=== PATIENT | female | born 1985 | race African-American/Black ===

== ENCOUNTER → 2021-11-19 12:53 | Outpatient (CLI) | payer BC, SELFPAY ==
--- NOTE | ~2021-11-19 | US_ITS ---
EXAMINATION: US OB <=14 wk fetus w TV DATE: 11/19/2021 13:20 INDICATION: Gestational dating. Evaluate viability. TECHNIQUE: Real-time transabdominal and transvaginal obstetric ultrasound. FINDINGS: No prior studies for comparison. The uterus measures 8.3 x 3.9 x 5.6 cm. There is an intrauterine gestational sac, with pole timmy ntified. There is a small subchorionic hemorrhage measuring 1.1 x 0.2 x 0.2 cm. The crown rump length measures 0.39 cm, which correlates with a estimated gestational age of 6 weeks 1 day. heart tones are identified measuring 112 BPM. There are small follicles in the ovaries bilaterally. IMPRESSION: 1. SL IUP with an EGA of 6 weeks, 1 days (EDC by current ultrasound of 07/14/2022). 2: Small subchorionic hemorrhage. Reviewed, dictated and finalized at location A. IMPRESSION: 1. SL IUP with an EGA of 6 weeks, 1 days (EDC by current ultrasound of 3). 2: Small subchorionic hemorrhage.
== END ==
PROVIDERS: PCP Obstetrics & Gynecology; Visit Provider Obstetrics & Gynecology
DX: O09.299 Supervision of pregnancy with other poor reproductive or obstetric history, unspecified trimester (principal); Z3A.00 Weeks of gestation of pregnancy not specified; Z3A.01 Less than 8 weeks gestation of pregnancy
CPT/HCPCS: 76801; 76817

== ENCOUNTER 2022-04-14 08:50 | Outpatient (RCR) | payer BC, SELFPAY ==
[2022-04-14] MEDS: RHO(D) IMMUNE GLOBULIN 300 MCG/2 ML SYRINGE IM (17:24)
== END 2022-07-13 23:59 | disposition home or self-care (01) ==
LOC: ANHLAB 08:50
PROVIDERS: Visit Provider Obstetrics & Gynecology
DX: Z29.13 Encounter for prophylactic Rho(D) immune globulin (principal); O36.0190 Maternal care for anti-D [Rh] antibodies, unspecified trimester, not applicable or unspecified; Z3A.00 Weeks of gestation of pregnancy not specified
CPT/HCPCS: 36415; 85461; 86850; 86900; 86901; 90384; 96372; J2790

== ENCOUNTER 2022-07-06 10:02 | Outpatient (CLI) | payer BC, SELFPAY ==
--- NOTE | ~2022-07-06 | US_ITS ---
US OB limited 07/06/2022 11:22 Indication: Leaking vaginal fluid Procedure: High-resolution Limited obstetrical ultrasound Comparison: No prior studies for comparison. Findings: There is a single living intrauterine with heart rate of 167 BPM. Fetus is in vertex presentation. Placenta is fundal/posterior. Amniotic fluid index measures 13.7 cm centimete rs (normal range for gestational age is 7.3-23.9 cm). Impression: 1: Normal PEARL measures 13.7 cm. Reviewed, dictated and finalized at location L. Impression: 1: Normal PEARL measures 13.7 cm.
[2022-07-06 11:00] VITALS: BP 131/78; PULSE 70
[2022-07-06 11:09] VITALS: BP 135/77; PULSE 59
--- NOTE | 2022-07-06 11:48 | PC.NURSE ---
Dr Buchanan notified of PEARL and negative ROM plus. OK to dc home. Patient is scheduled for IOL at 1700 on 07/07/22.
== END 2022-07-06 11:55 | disposition home or self-care (01) ==
LOC: ANHOBOP 10:51 → ANHLDR 10:51
PROVIDERS: Visit Provider Obstetrics & Gynecology
DX: O42.90 Premature rupture of membranes, unspecified as to length of time between rupture and onset of labor, unspecified weeks of gestation (principal); Z3A.00 Weeks of gestation of pregnancy not specified
CPT/HCPCS: 59025; 76815; 84112; 99199

== ENCOUNTER 2022-07-07 16:49 | Inpatient (IN) | payer BC, SELFPAY ==
[2022-07-07] VITALS (26 sets, daily range): BP systolic 118–151; BP diastolic 51–98; PULSE 71–90; RESP 16; TEMP 36.1–36.6; BMI 39.9
--- NOTE | 2022-07-07 17:27 | LDADM ---
This patient, Shelia Mendoza, was admitted to Labor/Delivery/Recovery 103 on 07/07/22 at 16:49. Plans for labor, pain management and were discussed with patient. Patient/family oriented to hospital policies and general routines including ID bracelet, bed and alarms, visiting hours, pain management, procedures, bathroom and other care routines, personal items, smoking policy, room service/diet and guest tray routines, infant security routines, and visiting hours. Patient/Family are encouraged to report perceived risks to care and to ask questions if they do not understand what they are told or what they should do. See OBIX for further documentation.
[2022-07-07 17:44] LABS: Basophils Percent Auto 0.3 % (0.2-1.2); Eosinophils Absolute Auto 0.1 K/mm3 (0-0.3); Eosinophils Percent Auto 1.8 % (0-4.4); Hematocrit 36.2 % (37.0-47.0); Hemoglobin 12.1 g/dL (12.0-15.0); Immature Granulocyte Absolute 0.06 K/mm3 (0.00-0.031); Immature Granulocyte Percent A 0.9 % (0-0.5); Lymphocytes Absolute Auto 1.49 K/mm3 (0.9-3.2); Lymphocytes Percent Auto 22.2 % (18.3-44.2); Mean Corpuscular HGB Conc 33.4 g/dl (32-36); Mean Corpuscular Hemoglobin 29.2 pg (26-34); Mean Corpuscular Volume 87.4 fl (80-100); Mean Platelet Volume 10.7 fl (7.4-10.4); Monocytes Absolute Auto 0.7 K/mm3 (0.1-0.6); Neutrophils Absolute Auto 4.4 K/mm3 (1.3-6.7); Neutrophils Percent Auto 64.8 % (45.5-73.1); Platelet Count Result 191 k/mm3 (150-375); Red Blood Count 4.14 M/mm3 (4.2-5.4); Red Cell Distribution Width 14.3 % (11.5-14.5); White Blood Count 6.7 K/mm3 (4.5-10.0)
--- NOTE | 2022-07-07 18:51 | WPDANESEPP ---
Anes - Eval Pre Procedure Procedure: labor epidural Date/Time: 07/07/22 18:51 Surgeon: johnson Preop Diagnosis: pain during labor Pre Op Diagnosis: IOL Patient Data Age: 36 Gender: F Height: 1.65 m Weight: 109 kg Last Vital Signs Pulse 74 07/07/22 18:45 BP 130/74 07/07/22 18:45 O2 Del Method Room Air 07/07/22 18:10 Allergies Allergy/AdvReac Type Severity Reaction Status Date / Time No Known Allergies Allergy Verified 07/07/22 18:21 Home Medications Medication Instructions Recorded Confirmed Type docosahexaenoic acid 200 mg 200 mg PO DAILY 05/19/20 07/07/22 History capsule ( DHA) aspirin 81 mg tablet,delayed 81 mg PO DAILY 02/09/22 07/07/22 History release ferrous sulfate 325 mg (65 mg 325 mg PO DAILY 05/03/22 07/07/22 History iron) tablet (Feosol) docusate sodium 100 mg capsule 100 mg PO DAILY 07/07/22 07/07/22 History (Stool Softener) Laboratory Tests 07/07/22 07/07/22 17:12 17:12 WBC 6.7 K/mm3 K/mm3 (4.5-10.0) RBC 4.14 M/mm3 L M/mm3 (4.2-5.4) Hgb 12.1 g/dL g/dL (12.0-15.0) Hct 36.2 % L % (37.0-47.0) MCV 87.4 fl fl (80-100) MCH 29.2 pg pg (26-34) MCHC 33.4 g/dl g/dl (32-36) RDW 14.3 % % (11.5-14.5) Plt Count 191 k/mm3 k/mm3 (150-375) MPV 10.7 fl H fl (7.4-10.4) Immature Gran % (Auto) 0.9 % H % (0-0.5) Neut % (Auto) 64.8 % % (45.5-73.1) Lymph % (Auto) 22.2 % % (18.3-44.2) [place] % (Auto) 10.0 % H % (2.6-8.5) Eos % (Auto) 1.8 % % (0-4.4) Baso % (Auto) 0.3 % % (0.2-1.2) Lymph # (Auto) 1.49 K/mm3 K/mm3 (0.9-3.2) [place] # (Auto) 0.7 K/mm3 H K/mm3 (0.1-0.6) Eos # (Auto) 0.1 K/mm3 K/mm3 (0-0.3) Baso # (Auto) 0.0 K/mm3 K/mm3 (0.0-0.1) Abs Immat Gran (auto) 0.06 K/mm3 H K/mm3 (0.00-0.031) Absolute Neuts (auto) 4.4 K/mm3 K/mm3 (1.3-6.7) Absolute Nucleated RBC 0.0 K/mm3 K/mm3 (0.0-0.012) Nucleated RBC % 0.0 % % (0.0-0.2) RPR Pending Patient hx anesthesia problems: none Family hx anesthesia problems: none Results Review: All pre-operative results and documents have been reviewed as part of the pre-operative evaluation. [facility] Past Medical History Medical History (Updated 07/07/22 @ 18:52 by Carley Rain CRNA) Diabetes History of miscarriage Intrauterine IUP (intrauterine ), incidental Family History Family History Mother High cholesterol Social History Social History Smoking status: Never smoker Second hand tobacco smoke exposure: No Alcohol intake: never Lack of Transportation: No Lack of Food: Never True Current Housing: I Have Housing Concerned About Future Housing: No Difficulty Paying Gas/Electric Bills: No Difficulty Paying for Meds: No Currently Unemployed: No Education: Bachelor's Degree Difficulty w/ Childcare or Family Care: No Spiritual care concerns: No Exam Day of Procedure 07/07/22 18:51
[2022-07-07] MEDS: LACTATED RINGERS 1,000 ML 125 ML IV CONT (19:07)
[2022-07-07] MEDS: OXYTOCIN 30 UNITS/NS 500 ML 30 UNITS/500 ML BAG IV CONT (19:08)
[2022-07-08] VITALS (315 sets, daily range): BP systolic 65–184; BP diastolic 33–158; PULSE 58–187; RESP 16; TEMP 36.1–37.1; O2SAT 82–100
[2022-07-08] MEDS: PHENYLEPHRINE 1,000 MCG/10 ML SYRINGE 100 MCG IV PUSH (01:17)
[2022-07-08] MEDS: LACTATED RINGERS 1,000 ML 125 ML IV CONT ×3 (03:43→14:21)
--- NOTE | 2022-07-08 08:28 | PM.IMHP ---
H&P: HPI History of Present Illness Date/Time: 07/08/22 08:28 Chief Complaint: Induction of labor Narrative: She is at 39 weeks by an edc of 07/14 established by a first trimester ultrasound which was not consistent with her period. She presented for MIL. Her Dalal score at last visit was 4. When she presented for induction her cervix had dilated to 3cm and Dalal was seven. PNC significant for AMA. She had a history of infertility and PCOS. She was on Metformin prior to . She has had normal glucose testing. Labs reviewed. GBS negative. Review of Systems Review of Systems: All systems reviewed & are unremarkable except as noted in HPI and below Constitutional: Constitutional: Reports no additional constitutional complaints and Denies headache(s) Eyes: Eyes: Denies spots in vision ENT: Reports system reviewed and no additional complaints, except as documented and Denies headache(s) Cardiovascular: Cardiovascular: Denies chest pain and Denies dyspnea Respiratory: Respiratory: Denies dyspnea Gastrointestinal: Gastrointestinal: Reports no additional gastrointestinal complaints Genitourinary: Genitourinary: Reports amenorrhea Musculoskeletal: Musculoskeletal: Reports no additional musculoskeletal complaints Integumentary/Breasts: Skin/Breast: Denies breast mass and Denies rash Neurologic: Denies headache(s) Psychiatric: Psychiatric: Reports no additional psychiatric complaints REPLACED BY [facility] Past Medical History Medical History (Updated 07/08/22 @ 08:30 by Giuseppe Buchanan MD) Diabetes History of miscarriage Intrauterine IUP (intrauterine ), incidental Family History Family History Mother High cholesterol Social History Social History Smoking status: Never smoker Second hand tobacco smoke exposure: No Alcohol intake: never Lack of Transportation: No Lack of Food: Never True Current Housing: I Have Housing Concerned About Future Housing: No Difficulty Paying Gas/Electric Bills: No Difficulty Paying for Meds: No Currently Unemployed: No Education: Bachelor's Degree Difficulty w/ Childcare or Family Care: No Spiritual care concerns: No Meds Home Medications and Allergies Home Medications Medication Instructions Recorded Confirmed Type docosahexaenoic acid 200 mg 200 mg PO DAILY 05/19/20 07/07/22 History capsule ( DHA) aspirin 81 mg tablet,delayed 81 mg PO DAILY 02/09/22 07/07/22 History release ferrous sulfate 325 mg (65 mg 325 mg PO DAILY 05/03/22 07/07/22 History iron) tablet (Feosol) docusate sodium 100 mg capsule 100 mg PO DAILY 07/07/22 07/07/22 History (Stool Softener) Allergies Allergy/AdvReac Type Severity Reaction Status Date / Time No Known Allergies Allergy Verified 07/07/22 18:21 Vital Signs Vital Signs - 24 hr 07/07/22 17:42 07/07/22 17:45 07/07/22 18:00 Temperature Pulse Rate 80 78 78 Respiratory Rate Blood Pressure 119/90 121/77 129/75 Pulse Oximetry Oxygen Delivery 07/07/22 18:15 07/07/22 18:30 07/07/22 18:45 Temperature 97 F L Pulse Rate 78 79 74 Respiratory Rate 16 Blood Pressure 123/66 125/80 130/74 Pulse Oximetry Oxygen Delivery 07/07/22 19:00 07/07/22 19:15 07/07/22 19:30 Temperature Pulse Rate 79 77 79 Respiratory Rate Blood Pressure 149/98 H 130/75 130/72 Pulse Oximetry Oxygen Delivery 07/07/22 19:45 07/07/22 20:00 07/07/22 20:17 Temperature Pulse Rate 76 90 80 Respiratory Rate Blood Pressure 126/80 126/69 124/54 L Pulse Oximetry Oxygen Delivery 07/07/22 20:30 07/07/22 20:45 07/07/22 21:00 Temperature Pulse Rate 86 78 73 Respiratory Rate Blood Pressure 130/78 134/79 151/84 H Pulse Oximetry Oxygen Delivery 07/07/22 21:15 07/07/22 21:30 07/07/22 21:45 Temperature
--- NOTE | 2022-07-08 08:32 | PM.OBPNLAB ---
Pain Control Date/time seen: 07/08/22 08:32 Comments: FHT 130, Cat 1, irreg ctx, IUPC recently placed, cervix /. Continue pitocin.
[2022-07-08] MEDS: SODIUM CHLORIDE 0.9% IV 300 ML 600 ML I-UTERINE (11:51)
[2022-07-08] MEDS: fentaNYL CITRATE INJ (*CRX) 100 MCG/2 ML VIAL (15:30)
--- NOTE | 2022-07-08 16:36 | PM.OBPNLAB ---
Pain Control Date/time seen: 07/08/22 1250 fht 135, cat 2, ant lip/rim, 0
[2022-07-08 16:39] LABS: Rapid Plasma Reagin Non-Reactive (NonReactive)
[2022-07-08] MEDS: AMPICILLIN 2 GM/NS 100 ML 2 GM/100 ML BAG IVPB (17:15)
[2022-07-08] MEDS: OXYTOCIN 30 UNITS/NS 500 ML 30 UNITS/500 ML BAG 125 UNITS IV CONT (18:53)
--- NOTE | 2022-07-08 19:29 | PM.OBDSVD ---
DS: Admitting Diagnosis Discharge Date 07/10/2022 Admitting Diagnosis Medical induction of labor DS: Discharge Diagnosis Discharge Diagnosis (1) Delivery normal: Code(s): O80 - Encounter for full-term uncomplicated delivery Status: Acute OB - DS: Summary Hospital Course Hospital Course: Admitted for MIL. She had pitocin induction. She had SROM. She did get an IUPC. She progressed to complete and had a spontaneous vaginal delivery complicated by mild shoulder dystocia relieved with suprapubic pressure. She had a second degree perineal laceration and a periurethral laceration repaired with 3.0 vicryl. OB Procedures : Ultrasound OB Procedures Intrapartum: Spontaneous Vag Delivery OB Procedures: : None Peripartum Data Infant Delivery Method: Natural Vaginal complications: none Status at Discharge Functional status at discharge: independent ambulation Time Spent with Patient Time attestation: Total time spent providing and/or coordinating discharge services: Exam Const: General: cooperative Orientation/consciousness: oriented to person, oriented to place and oriented to time HENMT: Face/Nose/Sinus: Normal external nose present Eyes: General: appearance normal, both eyes and all related structures Resp: Effort & Inspection: normal respiratory effort GI: Inspection: normal to inspection Skin: General skin exam: normal color Neuro: General: oriented to person, oriented to place and oriented to time Extrem: General: normal to inspection and no calf tenderness Psych: Appearance: grossly normal Mental Status: mental status grossly normal DS: Data Data Completed and Pending Labs on day of discharge: Labs from last 24 hours 07/07/22 17:12 RPR Non-reactive Discharge Plan Discharge Attending physician on discharge: Giuseppe Buchanan Consulting providers: Carley Rain; Madelyn Davis Discharging Clinician: Anusha Toledo Patient Disposition: Home, Self-Care Activity: may shower, may drive after 2 weeks and pelvic rest Diet: regular Discharge Instructions: Education: Mom and Baby Guide Given to: Mother Follow-Up: Call your delivering provider's office for an appointment to be seen in: 6 Weeks Mom [facility]. Appointment Date/Time: July 12, 2022 at 11:00 am What to expect at your follow-up visit: Call [phone] if you are unable to keep your appointment time. BREAST CARE: * Wear a snug supportive bra. * For engorgement discomfort: Breast Feeding: * Apply warm moist washcloths * Express milk as needed to relieve engorgement * Wear loose clothing Bottle Feeding: * May apply ice packs * For sore nipples: * Identify correct latch-on * Apply warm moist washcloths before and after nursing * Air dry nipples after nursing * May apply Lansinoh cream to nipples PERINEAL CARE: * Until bleeding stops, use your mandie bottle after urinating * Change your pad frequently throughout the day * You may take sitz baths several times a day (fill your bathtub with warm water and soak for 20 minutes.) Do NOT bathe in the water * No tub baths until seen by your physician - You may shower ACTIVITY: * Rest as much as possible. * Do not exercise or lift anything heavier than your baby (such as laundry or other children.) * Avoid stairs or driving as much as possible. * Do not put anything into the vagina. No douching, tampons, or sexual activity until seen by physician. NOTIFY PHYSICIAN IF YOU HAVE ANY QUESTIONS OR IF ANY OF THE FOLLOWING SYMPTOMS OCCUR: * If your perineum becomes red, swollen, or more painful than what you have experienced in the hospital. * If your vaginal bleeding becomes foul smelling. * If your vaginal bleeding becomes more heavy than a period or if your bleeding changes fro
--- NOTE | 2022-07-08 19:36 | PM.OBPRVD ---
OB - Delivery Note Procedure Delivery date: 07/08/22 Procedure: spontaneous vaginal delivery Induction method: Per Misoprostol Protocol Delivery monitor: External FHT and Internal Uterine Route of delivery: Laceration Description: Perineal - 2nd Degree Delivery repair: vicryl (3.0 vicryl) Specimen: No Quantitative Blood Loss (ml): 450 Anesthesia type: Epidural Disposition: Floor Narrative: She was admitted for [facility]. She had Pitocin induction. She had SROM. She had isolated episodes of bradycardia and pitocin was stopped and subsequently restarted. She had an IUPC placed and amnioinfusion for variable decelerations. She dilated to complete. She had a vaginal delivery. Complicated by mild shoulder dystocia which was not reduced with modified Segun, she then had suprapubic pressure which relieved the dystocia. Total time was 25sec. Infant was placed on abdomen, terminal meconium noted, cord doubly clamped and cut. sent to warmer with nursery staff. Placenta delivered spontaneously and intact. She sustained a second degree perineal laceration repaired with 3.0 vicryl. She also had a periurethral laceration requiring a figure of eight 3.0 vicryl for hemostasis. Hemostasis noted. Multiple figure of eight sutures were used for the vaginal laceration. Hemostasis noted. Vag packing inserted. Baby Date of : 07/08/22 Time of : 18:27 Weeks of gestation at delivery: 39 gender: Male Weight (pounds): 7 Weight (ounces): 11 presentation: vertex position: Left Occiput Anterior Placenta delivery description: Spontaneous Cord Vessel Description: Clamped/Cut score one minute: 5 score five minutes: 8 AMG Delivery Billing Delivery Delivery: Delivery Charge
[2022-07-08] MEDS: BENZOCAINE 20% AER SPR (*SP) 56 GM CAN 1 SPRAY TOPICAL (20:42)
[2022-07-08] MEDS: WITCH HAZEL 40 PADS 1 PAD TOPICAL (20:42)
[2022-07-08] MEDS: IBUPROFEN 600 MG TABLET PO (20:42)
--- NOTE | 2022-07-08 21:40 | PC.NURSE ---
Patient transferred to post room #286 via (W/C). Support person present. Oriented to unit, room, information board, rooming in, admission packet and security measures. Patient verbalizes understanding.
[2022-07-09 04:31] VITALS: BP 125/72; PULSE 99; RESP 16; TEMP 36.8; O2SAT 96
[2022-07-09 06:06] LABS: Hemoglobin 9.4 g/dL (12.0-15.0)
[2022-07-09 07:45] VITALS: BP 145/75; PULSE 108; RESP 15; TEMP 36.5; O2SAT 100
--- NOTE | 2022-07-09 08:00 | PC.NURSE ---
PT introductions made and plan of care discussed per post , pain management, breast feeding, daily care activities. PT and fob both recipients of such instructions and no barriers to learning identified at this time. PT received such instructions this shift via one to one discussion, mom baby care guide and demonstrations. PT verbalized understanding of such care.
--- NOTE | 2022-07-09 08:59 | WPDANLDPN2 ---
Anes-Prog Note L&D Date/Time: 07/09/22 08:59 Comfortable throughout: labor and delivery Neuraxial method: epidural Epidural/Spinal procedure site: clean & non-tender Neuro status: Neuro function grossly intact. Cardiovascular status: normal Respiratory status: normal Airway patency: baseline Mental status: baseline Post-Op hydration status: normal Vital Signs: Last Vital Signs Temp 97.7 F 07/09/22 07:45 Pulse 108 H 07/09/22 07:45 Resp 15 07/09/22 07:45 BP 145/75 H 07/09/22 07:45 Pulse Ox 100 07/09/22 07:45 O2 Del Method Room Air 07/08/22 23:02 Pain score (VAS): 0 I/O: Intake & Output 07/08/22 07/09/22 07/09/22 23:59 07:59 15:59 Intake Total 100 Output Total 75 Balance 25 Post-procedural complaints: none Patient feedback: Patient satisfied with anesthetic care. Other findings: pt verbalizes residual tingling sensation to left foot.denies motor deficit
[2022-07-09 09:50] VITALS: BP 123/64; PULSE 87; O2SAT 100
[2022-07-09 09:57] VITALS: PULSE 87; RESP 15; O2SAT 100
[2022-07-09] MEDS: ACETAMINOPHEN 325 MG TABLET 650 MG PO ×2 (09:57→19:13)
[2022-07-09] MEDS: DOCUSATE SODIUM 100 MG CAPSULE PO ×2 (09:58→19:14)
[2022-07-09] MEDS: IBUPROFEN 600 MG TABLET PO ×2 (09:59→19:14)
[2022-07-09] MEDS: POLYSACCHARIDE IRON COMPLEX 150 MG CAPSULE PO ×2 (09:59→19:14)
[2022-07-09] MEDS: MULTIVIT/MIN/PREN/FOL AC/IRON TABLET 1 TAB PO (09:59)
[2022-07-09] MEDS: LANOLIN (LANSINOH) 7.5 GM CREAM 1 APPLIC TOPICAL (10:02)
--- NOTE | 2022-07-09 10:28 | P.PNOB_ITS ---
OB - PN: Subj Subjective Date/time seen: 07/09/22 10:28 Interval history: She complains of left foot numbness. Says it affects walking some but she is able to walk. Patient comments: pain well controlled, tolerating diet and other (Decreasing lochia.) [place] baby status: doing well feeding status: exclusively bottle feeding OB - PN: Obj Data Labs 07/09/22 05:53 Labs: Laboratory Results - last 24 hr 07/07/22 07/09/22 07/09/22 17:12 04:38 05:53 Hgb 9.4 L Hct 29.0 L RPR Non-reactive Blood Type O Negative Antibody Screen Negative Screen Negative Baby's Blood Type O pos Baby's АННА Negative Doses of RhIg Required 1 OB - PN A/P Assessment and Plan (1) Delivery normal: Code(s): O80 - Encounter for full-term uncomplicated delivery Status: Acute Assessment and Plan: Doing well. Continue routine care. Mild decrease sensory in left but may be do to the tight compression she had on. Socks removed. Continue to observe. (2) Anemia: Code(s): D64.9 - Anemia, unspecified Status: Acute Assessment and Plan: Asymptomatic. Continue iron supplementation. Plan day: 1 Plan: routine care Comments: Patient doing well. Asymptomatic anemia. Continue routine care. Time Spent With Patient Time: Total time spent is greater than 50% in coordination of care (as documented) at patient's floor/unit and/or counseling patient: Review of Systems Review of Systems: All systems reviewed & are unremarkable except as noted in HPI and below Constitutional: Constitutional: Reports no additional constitutional complaints Cardiovascular: Cardiovascular: Denies dyspnea Respiratory: Respiratory: Denies dyspnea Gastrointestinal: Gastrointestinal: Reports no additional gastrointestinal co mplaints and Denies abdominal pain Genitourinary: Genitourinary: Reports no additional female genitourinary complaints Exam Const: General: no acute distress, alert and awake Resp: Effort & Inspection: normal respiratory effort GI: GI Palp: No Tenderness to palpation present (GI) Other: Fundus nontender, below umbilicus Neuro: Sensory Exam: other (sensory sl decrease left leg) Extrem: Other: no calf tenderness, 2+edema Psych: Appearance: grossly normal Affect: normal affect Other: Abd: fundus firm below umbilicus, nontender Perineum: healing Ext: nontender
[2022-07-09 12:00] VITALS: BP 126/68; PULSE 96; RESP 12; TEMP 36.8; O2SAT 99
[2022-07-09 19:14] VITALS: BP 126/62; PULSE 90; RESP 18; TEMP 36.6; O2SAT 100
[2022-07-09] MEDS: RHO(D) IMMUNE GLOBULIN 300 MCG/2 ML SYRINGE IM (21:55)
[2022-07-10] MEDS: IBUPROFEN 600 MG TABLET PO (07:56)
[2022-07-10] MEDS: MULTIVIT/MIN/PREN/FOL AC/IRON TABLET 1 TAB PO (07:56)
[2022-07-10] MEDS: ACETAMINOPHEN 325 MG TABLET 650 MG PO (07:56)
[2022-07-10] MEDS: POLYSACCHARIDE IRON COMPLEX 150 MG CAPSULE PO (07:57)
[2022-07-10] MEDS: DOCUSATE SODIUM 100 MG CAPSULE PO (07:57)
[2022-07-10 08:38] VITALS: BP 132/76; PULSE 85; RESP 16; TEMP 36.7; O2SAT 100
[2022-07-10] MEDS: WITCH HAZEL 40 PADS 1 PAD TOPICAL (09:17)
[2022-07-10] MEDS: BENZOCAINE 20% AER SPR (*SP) 56 GM CAN 1 SPRAY TOPICAL (09:17)
--- NOTE | 2022-07-10 11:02 | PC.NURSE ---
Addendum entered by Amanda Mathews RN 07/10/22 11:08: At 1108 AM, Dr. Toledo was updated on anesthesia's findings. Original Note: Dr. Toledo on unit and inquired an update for post-anesthesia tingling in pts left foot. At 1104 AM, Nurse Adria Mathews called and spoke with MARY Castaneda for an update. Tonya stated she spoke with pt this morning and is not rec any further treatment or evaluations at this time d/t no worsening symptoms and pt being able to bear weight and able to function normally. Tonya stated that she believes the tingling will subside overtime.
--- NOTE | 2022-07-10 11:12 | PM.OBPNVD ---
OB - PN: Subj Subjective Date/time seen: 07/10/22 11:12 Interval history: Reports increased edema and on and off left foot tingling. No trouble walking today. Patient comments: pain well controlled baby status: doing well OB - PN: Obj Data Labs 07/09/22 05:53 Labs: Laboratory Results - last 24 hr 07/09/22 04:38 Blood Type O Negative Antibody Screen Negative Screen Negative Baby's Blood Type O pos Baby's АННА Negative Doses of RhIg Required 1 OB - PN A/P Plan day: 2 Plan: routine care, discharge home and follow up 6 weeks Time Spent With Patient Time: Total time spent is greater than 50% in coordination of care (as documented) at patient's floor/unit and/or counseling patient: Exam : Bimanual exam- vagina & uterus: other (Uterus firm, nt @U)
[2022-07-12 11:00] VITALS: BP 119/65; PULSE 73; RESP 20; TEMP 36.6; O2SAT 100
== END 2022-07-10 12:57 | disposition home or self-care (01) | DRG 807 ==
LOC: ANHLDR 17:03 → ANHOB2 07-10 11:14 → ANHLDR 07-12 09:33 → ANHOB2 07-12 09:33
PROVIDERS: Admitting Provider Obstetrics & Gynecology; Visit Provider Obstetrics & Gynecology Gynecology
DX: O42.12 Full-term premature rupture of membranes, onset of labor more than 24 hours following rupture (principal); Z37.0 Single live birth; O99.892 Other specified diseases and conditions complicating childbirth; O24.429 Gestational diabetes mellitus in childbirth, unspecified control; O70.1 Second degree perineal laceration during delivery; R00.1 Bradycardia, unspecified; O76 Abnormality in fetal heart rate and rhythm complicating labor and delivery; O66.0 Obstructed labor due to shoulder dystocia; O71.82 Other specified trauma to perineum and vulva; O99.02 Anemia complicating childbirth; O12.04 Gestational edema, complicating childbirth; Z3A.39 39 weeks gestation of pregnancy
CPT/HCPCS: 36415; 85014; 85018; 85025; 85461; 86592; 86850; 86900; 86901; 90384; A9270; J0290; J2370; J2590; J2790; J2795; J3010; J7030; J7120

== ENCOUNTER 2024-11-28 09:35 | Outpatient (CLI) | payer BC, SELFPAY ==
--- NOTE | ~2024-11-28 | MM_ITS ---
EXAMINATION: MM screening genny BI w ina HISTORY: Screening TECHNIQUE: Craniocaudal and mediolateral oblique 3-D tomosynthesis images were obtained and synthetic 2-D images were generated. CAD analysis was submitted and interpreted. COMPARISON: Baseline BREAST PARENCHYMAL COMPOSITION: There are scattered areas of fibroglandular density. FINDINGS: There is no evidence of suspicious mass, calcification, or architectural distortion to suggest malignancy. There has been no suspicious interval change. IMPRESSION: 1. No mammographic evidence of malignancy. Recommend routine screening mammography in one year. BI-RADS Category 2: Benign finding(s) Reviewed, dictated and finalized at location Q. IMPRESSION: 1. No mammographic evidence of malignancy. Recommend routine screening mammogra phy in one year. BI-RADS Category 2: Benign finding(s)
--- OUTSIDE RECORDS SUMMARY | 2024-11-28 10:22 | XMS_ITS | Clinical Summary ---
Author Organization [facility] Address [address] [place] [id number] Care Team Providers Care Junior Architect Name Role Phone Unknown, Notinfile Primary Care Provider Unavail able Allergies No known active allergies Medications No known medications Active Problems Problem Noted Date Diagnosed Date Abnormal 03/26/2016 Possible , not yet confirmed 03/18/2016 03/18/2016 Anovulation 12/24/2015 Polycystic ovaries 11/27/2015 Irregular menstrual cycle 11/27/2015 Family History Medical History Relation Name Comments Cancer Other Reported Family History Of Cancer - uncle (Added by TW Conv) Relation Name Status Comments Other Social History Tobacco Use Types Packs/Day Years Used Date Smoking Tobacco: Never Assessed Comments Unknown Sex and Gender Information Value Date Recorded Sex Assigned at Not on file Legal Sex Female 6:32 AM [employer]URNACE DOOR [employer]END[employer] Gender Identity Female 01/10/2024 11:42 AM CDT Sexual Orientation Not on file Obstetrics History Last Filed Vital Signs Vital Sign Reading Time Taken Comments Blood Pressure 117/74 04/01/2016 8:42 AM [employer]NACE DOOR TENDER Pulse - - Temperature - - Respiratory Rate - - Oxygen Saturation - - Inhaled Oxygen Concentration - - Weight 117 kg (258 lb) 01/11/2024 9:33 AM CDT Height 157.5 cm (5' 2) 01/11/2024 9:33 AM CDT Body Mass Index 47.19 01/11/2024 9:33 AM CDT Plan of Treatment Health Maintenance Due Date Last Done Comments Cervical Cancer Screening 1984 Depression Screening 1984 Hepatitis C Screening 1984 Varicella Vaccines (1 of 2 - 13+ 2-dose series) 1997 Hepatitis B Screening 2002 Regular Well Visit/Exam 18-64 2002 HPV Vaccines (1 - 3-dose SCD M series) 12/11/2011 Influenza Vaccine (#1) 2024 DTaP/Tdap/Td Vaccine (3 - Td or Tdap) 06/19/2032 06/19/2022, 10/13/2017 Pneumococcal vaccine <65 Aged Out No longer eligible based on patient's age to complete this topic Insurance [employer] [place] Care Teams Junior Architect Relationship Specialty Start Date End Date Unknown, Notinfile PCP - General 12/27/23
--- OUTSIDE RECORDS SUMMARY | 2024-11-28 10:22 | XMS_ITS | Clinical Summary ---
Author Organization [facility] Address [address] [place] [phone] Phone Care Team Providers Care Pearl Stringer Name Role Phone Unavailable Primary Care Provider Unavailabl e Social History Tobacco Use Types Packs/Day Years Used Date Smoking Tobacco: Never Assessed Comments Unknown Sex and Gender Information Value Date Recorded Sex Assigned at Not on file Legal Sex Female 8:09 AM CDT Gender Identity Not on file Sexual Orientation Not on file Plan of Treatment Health Maintenance Due Date Last Done Comments HEPATITIS B VACCINES (1 of 3 - 19+ 3-dose series) 11/26 HPV/Cotest (21-29) 2005 HPV VACCINES (1 - 3-dose SCDM series) 12/11/2011 CERVICAL CANCER SCREENING 2014 HPV/Cotest (30-65) 2014 PAP SMEAR 2014 INFLUENZA VACCINE (#1) 2024 DTAP/TDAP/TD VACCINES (2 - Td or Tdap) 10/14/2027 Insurance [employer] BLUE ACCESS/[place] [address] [address] [place] [address] BLUE ACCESS/TRUE BLUE PPO
--- OUTSIDE RECORDS SUMMARY | 2024-11-28 10:22 | XMS_ITS | Clinical Summary ---
Author Organization [facility] Address [address] [address] Phone Care Team Providers Care Size Painter Name Role Phone Giuseppe Buchanan MD Unavailable [phone] Lena Velasquez Primary Care Provider + Allergies No known active allergies Medications metFORMIN (GLUCOPHAGE) 500 MG Tablet Take 500 mg by mouth 2 times daily. 4 Active naproxen (NAPROSYN) 500 MG Tablet TAKE 1 TABLET BY MOUTH 2 TIMES DAILY (WITH MEALS). TAKE NEEDED FOR PAIN 60 Tablet 4 Active atorvastatin (LIPITOR) 20 MG TabletIndications:H yperlipidemia, unspecified hyperlipidemia type Take 1 Tablet by mouth daily. 90 Tablet 3 5 Active Active Problems Problem Noted Date Diagnosed Date Obesity, Class II, BMI 35-39.9 02/28/2020 Vitamin D deficiency 08/21/2019 PCOS (polycystic ovarian syndrome) 07/14/2017 Hyperlipidemia 11/21/2015 Prediabetes 11/21/2015 Migraine without status migrainosus, not intract able 10/06/2015 Infertility, female 10/06/2015 Resolved Problems Problem Noted Date Diagnosed Date Resolved Date Obesity, Class III, BMI 40-4 9.9 (morbid obesity) 10/06/2015 02/28/2020 Encounters Date Type Department Care Team Description 09/24/2024 8:45 AM CDT [facility] [address] [place] [address] Lena Velasquez PAC Hyperlipidemia, unspecified hyperlipidemia type (Primary Dx); Well adult exam; Vitamin D deficiency; Screening for diabetes mellitus Discharge Disposition: Discharged to home or Selfcare 09/24/2024 Travel 09/20/2024 Results [facility]-Up [facility] [address] [place] [address] Lena Velasquez PAC CMP (COMPREHENSIVE METABOLIC PANEL), LIPID PANEL from Last 3 Months Immunizations Immunization Administration Dates Next Due TB Skin Test 10/13/2017 TDAP Vaccine 06/19/2022,10/13/2017 Family History Medical History Relation Name Comments High Cholesterol Mother Vero Hypertension Mother Vero Rheumatoid Arthritis Mother Vero Relation Name Status Comments Mother Vero Social History Tobacco Use Types Packs/Day Years Used Date Smoking Tobacco: Never Smokeless Tobacco: Never Tobacco Cessation:Counseling Given: Not Answered Alcohol Use Standard Drinks/Week Comments No 0 (1 standard drink = 0.6 oz pur e alcohol) [facility] Utilities Answer Date Recorded In the past 12 months has [employer] electric, gas, oil, or water [employer] threatened to shut off services in your home? No 06/20/2024 Social Connection and Isolation Panel Answer Date Recorded In a typical week, how many times do you talk on the phone with family, friends, or neighbors? More than three times a week 06/20/2024 How often do you get togethe r with friends or relatives? More than three times a week 06/20/2024 How often do you attend chur or roman catholic services? 1 to 4 times per year 06/20/2024 Do you belong to any clubs o r organizations such as jain groups, unions, fraternal or athletic groups, or school groups? No 06/20/2024 How often do you attend meet ings of the clubs or organizations you belong to? Never 06/20/2024 Are you , , di vorced, , never , or living with a partner? 06/20/2024 AUDIT-C Answer Date Recorded Q1: How often do you have a drink containing alcohol? Never 06/20/2024 Q2: How many drinks containi ng alcohol do you have on a typical day when you are drinking? Patient does not drink Q3: How often do you have si x or more drinks on one occasion? Never 06/20/2024 Overall Financial Resource Strain (CARDIA) Answe r Date Recorded How hard is it for you to pa y for the very basics like food, housing, medical care, and heating? Not very hard 06/20/2024 PHQ-2 Answer Date Recorded Total Score - Questions 1-9 0 05/27 [facility] - Occupational Stress Questionnaire Answer Date Recorded Do you feel stress - tense, restless, nervous, or anxious, or unable to sleep at night because your mind is troubled all the time - these days? Only a little 06/20/2024 Exercise Vital Sign Answer Date Recorde d On average, how many days pe r week do you engage in moderate to strenuous exercise (like a brisk walk)? 3 days 06/20/2024 On average, how many minutes do you engage in exercise at this level? 20 min 06/20/2024 Hunger Vital Sign Answer Date Recorded Within the past 12 months, y ou worried that your food would run out before you got the money to buy more. Never true 06/21/19 25 Within the past 12 months, t he food you bought just didn't last and you didn't have money to get more. Never true 06/20/2024 PRAPARE - Transportation Answer Date Re corded In the past 12 months, has l ack of transportation kept you from medical appointments or from getting medications? No 05/27 In the past 12 months, has l ack of transportation kept you from meetings, work, or from getting things needed for daily living? No 06/20/2024 Housing Stability Vital Sign Answer Kirt e Recorded In the last 12 months, was t here a time when you were not able to pay the mortgage or rent on time? No 06/12/2023 In the last 12 months, how many places have you lived? 1 06/12/2023 In the last 12 months, was t here a time when you did not have a steady place to sleep or slept in a prison (including now)? No 06/12/2023 Housing Stability Vital Sign Answer Kirt e Recorded In the last 12 months, was t here a time when you were not able to pay the mortgage or rent on time? No 06/20/2024 Number of Times Moved in the Last Year Not on fi le 06/20/2024 At any time in the past 12 m [facility], were you homeless or living in a prison (including now)? No 06/20/2024 Education Answer Date Recorded What is the highest level of school you have completed or the highest degree you have received? Bachelor's degree (e.g., BA, AB, BS) 02/28/2020 Sexually Active Control Partners Comments Yes Surgical Male had a v asectomy Dec 06 2022 Comments No Sex and Gender Information Value Date Recorded Sex Assigned at Not on file Legal Sex Female 10:08 AM CDT Gender Identity Not on file Sexual Orientation Not on file Last Filed Vital Signs Vital Sign Reading Time Taken Comments Blood Pressure 122/74 09/24/2024 8:35 AM CDT Pulse 68 09/24/2024 8:35 AM CDT Temperature 36.5 C (97.7 F) 09/24/2024 8:35 AM CDT Respiratory Rate 18 12/14/2023 1:13 PM CDT Oxygen Saturation 8% 09/24/2024 8:35 AM CDT Inhaled Oxygen Concentration - - Weight 112 kg (247 lb) 09/24/2024 8:35 AM CDT Height 165.1 cm (5' 5) 09/24/2024 8:35 AM CDT Body Mass Index 41.1 09/24/2024 8:35 AM CDT Plan of Treatment Upcoming Encounters Date Type Department Care Team (Late st Contact Info) Description 07/12/2025 8:45 AM CDT Office Visit [facility] [address] [place] [id number] Lena Velasquez, JANA [address] [place] [address] Health Maintenance Due Date Last Done Comments Human Papillomavirus (HPV) Immunization (1 - 3-dose SCDM series) 12/11/2011 Pap Smear 03/28/2023 03/28/2020, 04/28/2017, 04/13/2017 Influenza Immunization (#1) 2024 04/11/2019 SARS-COV-2 Immunization ( - season) 2024 Cervical Cancer Screening (CCS) 09/01/2027 HPV/Cotest 09/01/2027 08/31/2022 Td Immunization Every 10 Yea rs (Adults With 1 Tdap) 06/19/2032 06/19/2022, 10/13/2017 Respiratory Syncytial Virus (RSV) Immunization (Adult) (1 - 1-dose 75+ series) 12/11/2059 Hepatitis B Immunization Discontinued Hepatitis C Virus (HCV) Screening Discontinued Meningococcal Immunization (ACWY) Aged Out No longer eligible based on patient's age to complete this topic Pneumococcal Immunization Combined Aged Out No longer eligible based on patient's age to complete this topic Rotavirus Immunization Aged Out No lo nger eligible based on patient's age to complete this topic Procedures Procedure Name Priority Date/Time Associated Diagnosis Comments LIPID PANEL 09/18/2024 12:00 AM CDT CMP (COMPREHENSIVE METABOLIC PANEL) 09/18/2024 12:00 AM CDT LIPID PANEL Routine 09/18/2024 12:00 AM CDT Hyperlipidemia, unspecified hyperlipidemia type CMP (COMPREHENSIVE METABOLIC PANEL) Routine 09/18/2024 12:00 AM CDT Hyperlipidemia, unspecified hyperlipidemia type PATHOLOGY CYTOLOGY [employer]IONS ARCHITECT (PAP SMEAR) Routine 04/13/2017 from Last 3 Months or Most Recently Relevant to Health Maintenance Results * LIPID PANEL (09/18/2024 12:00 AM CDT) Only the most recent of2 resultswithin the time period is included. CHOLESTEROL 167 SCAN HDL CHOLESTEROL 49 SCAN LDL 100 SCAN 09/18/2024 us Lena Velasquez PAC CHEMISTRY ORDERABLES Fin al Result SCAN * CMP (COMPREHENSIVE METABOLIC PANEL) (09/18/2024 12:00 AM CDT) Only the most recent of2 resultswithin the time period is included. 09/18/2024 us Lena Velasquez PAC CHEMISTRY ORDERABLES Fin al Result SCAN * PATHOLOGY CYTOLOGY ADV[employer] ARCHITECT (PAP SMEAR) (04/13/2017) us Giuseppe Buchanan MD PATHOLOGY/CYTOLOGY ORDERABLE S Final Result from Last 3 Months or Most Recently Relevant to Health Maintenance Insurance [facility] Care Teams Size Painter Relationship Specialty Start Date End Date Lena Velasquez PAC [address] [place] [address] PCP - General Physician Oil Rig Driller 06/13/23 Giuseppe Buchanan MD [id number] [facility] [address] [place] [address] Consulting Physician Obstetrics & Gynecology 07/14/17
== END 2024-11-28 09:36 | disposition home or self-care (01) ==
LOC: CHSIMG 09:37
PROVIDERS: PCP Physician Assistant; Visit Provider Nurse Practitioner Family
DX: Z12.31 Encounter for screening mammogram for malignant neoplasm of breast (principal)
CPT/HCPCS: 77063; 77067